=== PATIENT | female | born 1995 | race African-American/Black ===

== ENCOUNTER 2017-02-11 19:51 | Emergency (ER) | payer SELFPAY ==
[~2017-02-11] VITALS: Ht 157.5 cm; Wt 66.0 kg
[~2017-02-11 19:51] MED LIST: CIPR500T4 PO; METR-1 PO
[2017-02-11 19:53] VITALS: BP 119/66; PULSE 62; RESP 14; TEMP 98.4; O2SAT 99
--- NOTE | 2017-02-11 20:04 | PD ---
Physical Exam Time Seen by Provider: 20:02 Narrative 21yo F c/o cyst to her genital area x1 week. Denies vag dc, abd pain, N, V, F. Patient seen in triage. VS reviewed. Awaiting bed placement. Data Data Last Documented VS Vital Signs Date Time Temp Pulse Resp B/P Pulse Ox O2 Delivery O2 Flow Rate FiO2 02/11/17 19:53 98.4 62 14 119/66 99 Room Air MDM Supervised Visit with EMRE: Katelynn Savage February 11, 2017 20:04
--- NOTE | 2017-02-11 21:01 | PD ---
HPI Chief Complaint: Lump, Cyst, Hernia Time Seen by Provider: 20:32 Travel History International Travel<30 days: No Contact w/Intl Traveler<30days: No Traveled to known affect area: No History of Present Illness HPI Patient is a 21-year-old female presents emergency Department with a bump in her perineum. Patient states that his been there for the past week and was fairly intense in pain but started going down. She also endorses some vaginal discharge. She states that she had been taking some Flagyl in the past and this seemed to make the lesion go down. She states that she is unable to find the lesion currently. She states currently she feels well and does not have any pain but still has a bump. She states that she is somewhat concern for STDs. Fever dysuria vaginal bleeding nausea vomiting diarrhea or constipation. PFSH Past Medical History Medical History: Denies Significant Hx Hx Anticoagulant Therapy: No Cardiovascular Problems: No Chemotherapy: No Cerebrovascular Accident: No Diabetes: No Diminished Hearing: No Immune Disorder: No Respiratory: No Tetanus Vaccination: Unknown Influenza Vaccination: No ?: Not Past Surgical History Surgical History: No Previous Surgery Social History Alcohol Use: Yes (OCC) Tobacco Use: No Substance Use: No Allergies-Medications (Allergen,Severity, Reaction): Coded Allergies: No Known Allergies (Verified , 02/11/17) Reported Meds & Prescriptions Reported Meds & Active Scripts Active Flagyl (Metronidazole) 500 Mg Tab 500 Mg PO BID 7 Days Flagyl (Metronidazole) 500 Mg Tab 500 Mg PO TID Cipro (Ciprofloxacin HCl) 500 Mg Tab 500 Mg PO BID Review of Systems Except as stated in HPI: all other systems reviewed are Neg Physical Exam Narrative GENERAL: Well-developed well-nourished no apparent distress SKIN: Focused skin assessment warm/dry. HEAD: Atraumatic. Normocephalic. EYES: Pupils equal and round. No scleral icterus. No injection or drainage. ENT: No nasal bleeding or discharge. Mucous membranes pink and moist. NECK: Trachea midline. No JVD. CARDIOVASCULAR: Regular rate and rhythm. No murmur appreciated. RESPIRATORY: No accessory muscle use. Clear to auscultation. Breath sounds equal bilaterally. GASTROINTESTINAL: Abdomen soft, non-tender, nondistended. Hepatic and splenic margins not palpable. GENITOURINARY: Patient exam performed with female nurse it service delivery manager present all times. There is a white milky discharge consistent with BV. Cervix is closed, no vaginal bleeding, no cervical motion tenderness no bimanual tenderness. The patient points to a lesion that is just posterior to her labia majora on the left side. This lesion is covered with smooth skin, no rash no erythema no induration. There is a fairly hard pearllike structure in the middle of it could be consistent with a simple cyst or sebaceous cyst. No warts no herpes lesions seen. MUSCULOSKELETAL: No obvious deformities. No clubbing. No cyanosis. No edema. NEUROLOGICAL: Awake and alert. No obvious cranial nerve deficits. Motor grossly within normal limits. Normal speech. PSYCHIATRIC: Appropriate mood and affect; insight and judgment normal. Data Data Last Documented VS Vital Signs Date Time Temp Pulse Resp B/P Pulse Ox O2 Delivery O2 Flow Rate FiO2 02/11/17 20:03 16 02/11/17 19:53 98.4 14 119/66 99 Room Air Orders Urinalysis - C+S If Indicated (02/11/17 20:32) Ed Urine Pregnancytest Poc (02/11/17 20:32) Wet Prep Profile (02/11/17 20:32) Labs Laboratory Tests Test 02/11/17 02/11/17 20:30 21:40 Clue Cells (Wet Prep) PRESENT Vaginal Trichomonas (Wet Prep) NONE SEEN Vaginal Yeast (Wet Prep) NONE SEEN Urine Color LIGHT-RED Urine Turbidity CLOUDY Urine pH 7.0 Urine Specific [place] 1.027 Urine Protein 30 mg/dL Urine Glucose (UA) NEG mg/dL Urine Ketones NEG mg/dL Urine Occult Blood NEG Urine Nitrite NEG Urine Bilirubin NEG Urine Urobilinogen 2.0 MG/DL Urine Leukocyte Esterase TRACE Urine RBC 2 /hpf Urine WBC 1 /hpf Urine Squamous Epithelial 109 /hpf Cells Urine Bacteria FEW /hpf Urine Mucus MANY /lpf Microscopic Urinalysis Comment CULT NOT INDICATED MDM Medical Decision Making Medical Screen Exam Complete: Yes Emergency Medical Condition: Yes Differential Diagnosis Sebaceous cyst, BV, UTI, , HPV seems less likely. Narrative Course Patient roomed emergency department, the wet prep was obtained given her white discharge. It did reveal clue cells. After her pelvic exam the patient stated that she was concern for STDs, at this time I see no evidence for STDs and she is referred to the health department at this time for testing of HIV hepatitis gonorrhea and chlamydia. She was offered empiric treatment with Rocephin and azithromycin and she declined at this time. Patient does have some hematuria but is on her cycle currently. No evidence for Bartholin's cyst or abscess. She will be placed on Flagyl. Discussed need follow-up with primary care physician return to ED criteria. Diagnosis Primary Impression: Bacterial vaginosis Additional Impression: Sebaceous cyst Med/Other Pt SpecificInfo: Prescription(s) given Scripts Metronidazole (Flagyl)500 Mg Weh001 Mg PO BID 7 Days Ref 0 Prov:Jose Mejia MD 02/11/17 Disposition: 01 DISCHARGE HOME Condition: Stable Jose Mejia MD February 11, 2017 21:01
[2017-02-11 22:13] LABS: BACTERIA, URINE FEW /hpf; BLOOD, URINE NEG (NEG); COMMENT (UR) CULT NOT INDICATED; CULTURE IF INDICATED CULT NOT INDICATED; GLUCOSE,URINE NEG (NEG); KETONE, URINE NEG (NEG); MUCUS URINE MANY /lpf (OCC); NITRITE,URINE NEG (NEG); SQUAMOUS EPITHELIAL CELL URINE 109 /hpf (0-5); URINE COLOR LIGHT-RED (YELLW/STRAW)
[2017-02-11] MEDS ORDERED: METR-1 PO (22:22)
== END 2017-02-11 22:44 | disposition home or self-care (01) ==
LOC: NEPD 19:51
DX: N76.0 Acute vaginitis (principal); L72.3 Sebaceous cyst
CPT/HCPCS: 81001; 84703; 87210; 99284